=== PATIENT | female | born 1940 | race Caucasian/White ===

== ENCOUNTER 2016-11-03 19:20 | Inpatient (IN) | payer MEDICARE, BC ==
[~2016-11-03] VITALS: Ht 157.5 cm; Wt 56.6 kg
[2016-11-03 19:43] VITALS: BP 137/65; PULSE 85; TEMP 98.2
[2016-11-03] MEDS ORDERED: IMODIUM AD1 MG/5 ML (19:46)
[2016-11-03] MEDS ORDERED: FLONASE NASAL S16 GM NS (19:47)
[2016-11-03] MEDS ORDERED: NORVASC 5MG5 MG/TAB PO (19:47)
[2016-11-03 20:14] LABS: PROTHROMBIN TIME 10.7 SECONDS (9.7-12.8)
[2016-11-03 22:02] LABS: PH 6 (5-8); SQUAMOUS EPITHELIAL 0-2 /hpf; URINE APPEARANCE Clear; URINE BACTERIA None Seen /hpf; URINE BILIRUBIN Negative (NEGATIVE); URINE BLOOD Negative (NEGATIVE); URINE COLOR Yellow; URINE GLUCOSE Negative (NEGATIVE); URINE KETONE Negative (NEGATIVE); URINE RBC 0-2 /hpf; URINE UROBILINOGEN Negative (NEGATIVE); URINE WBC 0-2 /hpf
[2016-11-04] VITALS (13 sets, daily range): BP systolic 119–147; BP diastolic 58–76; PULSE 65–84; TEMP 97.6–98.2
[2016-11-04 07:46] LABS: HEMATOCRIT 38.9 % (37.0-47.0); HEMOGLOBIN 12.4 g/dl (12.5-16.0); MEAN CELL VOLUME 102 fl (80.0-100.0); MEAN CORPUSCULAR HEMOGLOBIN 32 pg (27.0-31.0); MEAN CORPUSCULAR HGB CONC 32 g/dl (33.0-37.0); MEAN PLATELET VOLUME 9.5 fl (7.4-10.4); PLATELET COUNT 317 K/mm3 (130-400); RED BLOOD COUNT 3.83 M/mm3 (4.10-5.30); REDCELL DISTRIBUTION WIDTH-CV 14.2 % (11.5-14.5); WHITE BLOOD COUNT 15.8 K/mm3 (4.8-10.8)
[2016-11-04 08:16] LABS: ADD PATHOLOGY DIFF REVIEW NO; CALCIUM 8.6 mg/dL (8.4-10.2); CREATININE, serum 0.64 mg/dL (0.52-1.25); POTASSIUM 3.4 mmol/L (3.4-5.0)
[2016-11-04 09:26] LABS: BAND 8 % (0-10); EOSINOPHIL 1 % (0-4); METAMYELOCYTE 1 % (0-0); NEUTROPHILS 56 % (42.0-75.2); TOTAL CELLS COUNTED 100
[2016-11-04 09:27] LABS: PLATELET ESTIMATE NORMAL (NORMAL)
[2016-11-05 02:49] VITALS: BP 131/59; PULSE 70; TEMP 97.9
[2016-11-05 06:28] VITALS: BP 137/66; PULSE 64; TEMP 98.4
[2016-11-05 09:15] LABS: MEAN CELL VOLUME 101 fl (80.0-100.0); MEAN CORPUSCULAR HGB CONC 33 g/dl (33.0-37.0); MEAN PLATELET VOLUME 9.5 fl (7.4-10.4); PLATELET COUNT 296 K/mm3 (130-400); REDCELL DISTRIBUTION WIDTH-CV 13.7 % (11.5-14.5); WHITE BLOOD COUNT 16.8 K/mm3 (4.8-10.8)
[2016-11-05 09:16] LABS: HEMATOCRIT 34.2 % (37.0-47.0); HEMOGLOBIN 11.1 g/dl (12.5-16.0); MEAN CORPUSCULAR HEMOGLOBIN 33 pg (27.0-31.0)
[2016-11-05 10:12] VITALS: BP 148/70; PULSE 75; TEMP 98.1
[2016-11-05 14:08] VITALS: BP 126/69; PULSE 79; TEMP 98
[2016-11-05 17:23] VITALS: BP 135/62; PULSE 75; TEMP 98.1
[2016-11-05 21:40] VITALS: BP 132/59; PULSE 66; TEMP 98.2
[2016-11-06 05:18] VITALS: BP 139/64; PULSE 72; TEMP 98.2
[2016-11-06 06:44] LABS: MEAN CELL VOLUME 100 fl (80.0-100.0); MEAN CORPUSCULAR HGB CONC 33 g/dl (33.0-37.0); MEAN PLATELET VOLUME 9.9 fl (7.4-10.4); PLATELET COUNT 308 K/mm3 (130-400); RED BLOOD COUNT 3.46 M/mm3 (4.10-5.30); REDCELL DISTRIBUTION WIDTH-CV 14.1 % (11.5-14.5); WHITE BLOOD COUNT 16.1 K/mm3 (4.8-10.8)
[2016-11-06 07:01] LABS: HEMATOCRIT 34.6 % (37.0-47.0); HEMOGLOBIN 11.3 g/dl (12.5-16.0); MEAN CORPUSCULAR HEMOGLOBIN 33 pg (27.0-31.0)
[2016-11-06 10:03] VITALS: BP 126/55; PULSE 68; TEMP 98.3
[2016-11-06 14:03] VITALS: BP 115/54; PULSE 72; TEMP 97.9
[2016-11-06 17:31] VITALS: BP 148/78; PULSE 74
[2016-11-06 21:24] VITALS: BP 142/69; PULSE 62; TEMP 97.8
[2016-11-07 01:06] VITALS: BP 129/63; PULSE 71; TEMP 98.6
[2016-11-07 05:49] VITALS: BP 150/65; PULSE 62; TEMP 98.2
[2016-11-07] MEDS ORDERED: NORCO 325 MG-7.1 TAB PO (05:56)
[2016-11-07] MEDS ORDERED: CELEBREX 200MG200 MG PO (05:56)
[2016-11-07] MEDS ORDERED: XARELTO10 MG PO (05:57)
[2016-11-07] MEDS ORDERED: ULTRAM 50MG TAB50 MG PO (05:57)
[2016-11-07 07:37] LABS: MEAN CELL VOLUME 101 fl (80.0-100.0); MEAN CORPUSCULAR HGB CONC 32 g/dl (33.0-37.0); MEAN PLATELET VOLUME 9.6 fl (7.4-10.4); PLATELET COUNT 345 K/mm3 (130-400); RED BLOOD COUNT 3.62 M/mm3 (4.10-5.30); REDCELL DISTRIBUTION WIDTH-CV 14.2 % (11.5-14.5); WHITE BLOOD COUNT 16.2 K/mm3 (4.8-10.8)
[2016-11-07 07:39] LABS: HEMATOCRIT 36.5 % (37.0-47.0); HEMOGLOBIN 11.8 g/dl (12.5-16.0); MEAN CORPUSCULAR HEMOGLOBIN 33 pg (27.0-31.0)
[2016-11-07 07:40] LABS: ADD PATHOLOGY DIFF REVIEW NO
[2016-11-07 09:31] VITALS: BP 116/56; PULSE 71; TEMP 97.8
[2016-11-07 11:20] LABS: BAND 3 % (0-10); EOSINOPHIL 4 % (0-4); NEUTROPHILS 43 % (42.0-75.2); TOTAL CELLS COUNTED 100
[2016-11-07 11:21] LABS: ANISOCYTOSIS 1+; PLATELET ESTIMATE INCREASED (NORMAL)
[2016-11-07 13:48] VITALS: BP 133/65; PULSE 74; TEMP 98.3
== END 2016-11-07 14:30 | disposition home or self-care (01) | DRG 481 ==
LOC: SURG 19:20
PROVIDERS: Internal Medicine; Nurse Practitioner Family; Orthopaedic Surgery; Physician Assistant
PROC: 0QS706Z Reposition Left Upper Femur with Intramedullary Internal Fixation Device, Open Approach (ICD-10-PCS; principal; 2016-11-04 11:30)
DX: S72.22XA Displaced subtrochanteric fracture of left femur, initial encounter for closed fracture (principal); D62 Acute posthemorrhagic anemia; Z66 Do not resuscitate; W18.30XA Fall on same level, unspecified, initial encounter; I10 Essential (primary) hypertension; J84.10 Pulmonary fibrosis, unspecified; Z86.711 Personal history of pulmonary embolism
CPT/HCPCS: 99223-AI; 99232-AI; 99239; A4315; A9284; C1713; J0690; J1100; J1170; J1885; J1940; J2250; J2270; J2405; J2704; J3010; J7120; J7512